=== PATIENT | female | born 1975 | race Caucasian/White ===

== ENCOUNTER 2021-01-27 09:33 | Emergency (ER) | payer OTHER ==
[2021-01-27 09:50] VITALS: BP 132/90; PULSE 99; TEMP 98.2; BMI 29.0
[2021-01-27] MEDS ORDERED: KETOROLAC TROMETHAMINE 30 MG/1 ML VIAL IM ONE (10:54)
[2021-01-27] MEDS ORDERED: LIDOCAINE 5% TOPICAL PATCH TP ONE (10:54)
[2021-01-27] MEDS ORDERED: KETOROLAC TROMETHAMINE 30 MG/1 ML VIAL ONE (11:39)
[2021-01-27] MEDS ORDERED: LIDOCAINE 5% TOPICAL PATCH ONE (11:53)
[2021-01-27] MEDS ORDERED: LIDOCAINE PATCH REMOVAL MC ONE (22:00)
== END 2021-01-27 12:49 | disposition home or self-care (01) ==
LOC: JER 09:33
PROC: 3E0233Z Introduction of Anti-inflammatory into Muscle, Percutaneous Approach (ICD-10-PCS; principal; 2021-01-27)
DX: M79.10 Myalgia, unspecified site (principal)
CPT/HCPCS: 72100-TC-FY; 99284-25